=== PATIENT | female | born 1940 | race Caucasian/White ===

== ENCOUNTER → 2016-11-29 | Outpatient (CLI) | payer MEDICARE, OTHER ==
[~2016-11-29] MED LIST: ECOTRIN325 MG PO; HYDROCHLOROTHIA25 MG PO; HYDROCODON-ACE1 EAC9 PO; LISINOPRIL10 MG PO; LISINOPRIL30 MG PO; PRAVASTATIN SOD20 MG PO
--- NOTE | ~2016-11-29 | MY29 ---
[facility] A Service of [facility] RADIOLOGY TEXT RESULTS PATIENT: APARNA JENKINS LOCATION: [facility] : 44 UNIT #: [id number] AGE: [address]: Deana Forde APRN SEX: F ORDER DR: [id number] [facility] [address] [place], [place] [address] [id number] O MR#: [id number] #: [id number] NAME: APARNA JENKINS : 1940 SEX: F STUDY DATE/TIME: 11/29/2016 11:31 UNIT: [facility] ROOM: STUDY DESCRIPTION: MY [facility] SCREENING W/ CAD BILAT Attending Physician: Deana Forde A.P.R.N. Referring Physician: Deana Forde A.P.R.N. Ordering Physician: Deana Forde A.P.R.N. Primary Care Physician: Deana Forde A.P.R.N. MEDICAL IMAGING REPORT This report is preliminary unless electronic signature is present EXAM Digital screening mammograms 11/29/2016. HISTORY A 76 year old woman positive family history, age 32. Annual screening COMPARISON STUDIES Comparison mammograms 06/03/2014, 07/01/2014. FINDINGS Digital imaging of each breast was completed utilizing screening protocol. Review includes FDA-approved CAD device. The breast parenchyma is partially fatty replaced with extremely dense residual fibronodular parenchyma anterior thirds of each breast. Subareolar duct prominence bilaterally appears stable. Left chest wall/breast varicosities are again noted and stable. There is no interval occurring breast mass. I see no suspicious microcalcifications and no suspicious architectural deformity. IMPRESSION Stable benign mammogram. Annual screening recommended. Patients over the age of 40 are entered into a reminder system with target due date for the next mammogram. A result letter will also be sent to the patient. BIRADS: 2 Benign Finding Dictated by... [facility] A Service of [facility] RADIOLOGY TEXT RESULTS PATIENT: APARNA JENKINS LOCATION: [facility] : 44 UNIT #: [id number] AGE: [address]: Deana Forde APRN SEX: F ORDER DR: Fred Hutchins M.D. THIS IS AN ELECTRONICALLY VERIFIED REPORT Fred Hutchins M.D. at 11/29/2016 3:20 PM Thad TD: 11/29/2016 14:53 JOB #: [id number] MEDICAL IMAGING REPORT Page 1 of 1 COPY
== END | disposition home or self-care (01) ==
LOC: CWCC 11:00
DX: Z12.31 Encounter for screening mammogram for malignant neoplasm of breast (principal); Z80.3 Family history of malignant neoplasm of breast
CPT/HCPCS: G0202